=== PATIENT | female | born 1965 | race Caucasian/White ===

== ENCOUNTER 2018-02-18 22:25 | Emergency (ER) | payer BC ==
[~2018-02-18] VITALS: Ht 160 cm; Wt 79.4 kg
[2018-02-18] MEDS ORDERED: MORPHINE SULFATE 4 MG/1 ML DISP.SYRIN IV ONE (23:00)
[2018-02-18] MEDS ORDERED: MORPHINE SULFATE 4 MG/1 ML DISP.SYRIN ONE (23:04)
[2018-02-18] MEDS ORDERED: ONDANSETRON 4 MG/2 ML VIAL ONE (23:07)
[2018-02-18] MEDS ORDERED: KETOROLAC TROMETHAMINE 30 MG INJ ONE (23:38)
[2018-02-18] MEDS ORDERED: ONDANSETRON 4 MG/2 ML VIAL IV ONE (23:45)
[2018-02-18] MEDS ORDERED: KETOROLAC TROMETHAMINE 30 MG INJ IVP ONE (23:45)
[2018-02-18] MEDS ORDERED: DIAZEPAM 10 MG/2 ML DISP.SYRIN IV ONE (23:45)
[2018-02-19] MEDS ORDERED: LORAZEPAM 2 MG/1 ML VIAL IV ONE
[2018-02-19] MEDS ORDERED: LORAZEPAM 2 MG/1 ML VIAL ONE (00:04)
--- NOTE | 2018-02-19 00:28 | NUR ---
IV removed. Catheter intact and site benign. Pressure and 4x4 gauze applied to site. No bleeding noted.
--- NOTE | 2018-02-19 00:43 | NUR ---
Patient discharged to home in stable conditon. Written and verbal after care instructions given. Patient verbalizes understanding of instructions. Pt left ER via wheelchair accompanied by friend who will drive home. All belongings with pt. VSS. NAD noted.
[2018-02-19 00:44] VITALS: BP 119/69
== END 2018-02-19 00:45 | disposition home or self-care (01) ==
LOC: ER 22:28
DX: M54.42 Lumbago with sciatica, left side (principal)
CPT/HCPCS: 96374; 96375; 99284; A4663; J1885; J2060; J2270; J2405

== ENCOUNTER 2023-12-02 23:07 | Emergency (ER) | payer BC ==
[~2023-12-02] VITALS: Ht 160 cm; Wt 86.2 kg
[2023-12-03 01:27] VITALS: BP 118/92; O2SAT 98
== END 2023-12-03 01:46 | disposition home or self-care (01) ==
LOC: ER 23:08
DX: M54.32 Sciatica, left side (principal); M79.605 Pain in left leg; Z98.890 Other specified postprocedural states
CPT/HCPCS: A4606; A4663